=== PATIENT | female | born 1960 | race Caucasian/White ===

== ENCOUNTER 2023-12-07 21:33 | Emergency (ER) | payer MEDICARE, SELFPAY ==
[2023-12-07 21:42] VITALS: BP 167/74; PULSE 68; RESP 20; TEMP 36.2; O2SAT 98; BMI 21.9
--- NOTE | 2023-12-07 21:53 | XR_ITS ---
Patient: LAZARO WAGNER Facility:?[facility] Patient ID:?[id number] Site Patient ID:?[id number] Site :?[id number] Study:?XRay-Extremity Right WRIST 3 VIEW-12/07/2023 10:28:45 PM Ordering Physician:?WILMAN ARSHAD Final Report: INDICATION: Trauma and pain. TECHNIQUE: Right wrist 3 views. COMPARISON: None. FINDINGS: Mildly comminuted displaced fracture of the distal radius with intra-articular extension of fracture plane. Joint alignment is maintained. Mild widening of the scapholunate interval. Soft tissue swelling. IMPRESSION: Mildly comminuted displaced intra-articular distal radial fracture. Dictated by Emery Ibarra MD @ 12/07/2023 10:40:24 PM Signed by:?Emery Ibarra MD @12/07/2023 10:40:24 PM (Electronic Signature)
--- NOTE | 2023-12-07 23:00 | ED.UPPEXIN ---
HPI - Extremity Injury (Upper) General Time Seen by Provider: 23:00 Date Seen: 12/07/23 Chief Complaint: Extremity Pain/Injury, Upper Stated Complaint: right wrist injury, possibly broken Time Seen by Provider: 12/07/23 22:48 Source: patient and RN notes reviewed Mode of arrival: ambulatory Limitations: no limitations History of Present Illness HPI narrative: This 63-year-old female is coming in with right wrist pain and swelling after she fell. She was walking her dog and got pulled, landed with her right arm out. Denies any numbness tingling, nothing else was injured. She broke the same wrist 6 years ago. She hurts with any movement in the wrist. Nursing staff did provide ice packs, did order wrist x-rays in triage due to the volume and acuity in the ER. Her just had shoulder surgery here yesterday, she is stating she is supposed to be taking care of him. She is here with her sister. complaint: injury to: right and wrist Related Data Allergies Allergy/AdvReac Type Severity Reaction Status Date / Time No Known Drug Allergies Allergy Verified 12/07/23 21:53 Review of Systems Narrative: As per HPI. PFSH PFS Social History Non-prescribed substance use: denies use Exam Const: Vital Signs, click to edit/add: Vital Signs - 24 hr 12/07/23 21:42 Temperature 97.1 F L Pulse Rate [Left P ulse Oximeter] 68 Respiratory Rate 20 Blood Pressure [Le ft Upper Arm] 167/74 H Pulse Oximetry 98 Oxygen Delivery Me thod Room Air CPAP Patient is alert, interactive, no apparent distress. She has ice on her right wrist area, this is removed, there is obvious swelling and developing bruising, no loss of skin integrity. Distal sensation and cap refill are normal. No movement of the wrist attempted due to the swelling, probable obvious underlying fracture based on clinical exam. Fingers and hand without any definite pain, mid forearm on up without any problematic areas of pain. Documenting provider has reviewed patient's vital signs: yes Course Course ED Course: Patient's x-rays have obvious distal radius fracture with the fragments comminuted and displaced. Was able to review this with patient when seeing her and showed her a picture. Reviewed with her my conversation with Orthopedics already. Short-arm splint was applied, patient felt stability and improvement in her pain once the splint was on. Consultations Consultation #1: Did review x-ray images with on-call orthopedist Dr. Hughes. He agrees with splinting, follow up with Orthopedics next week for surgical consultation. Will review this with the patient when I do get a chance to see her. Time: 22:34 Vital Signs Vital signs: Initial Vital Signs Temperature 97.1 F L 12/07/23 21:42 Temperature Source Temporal Artery Scan 12/07/23 21:42 Pulse Rate 68 12/07/23 21:42 Pulse Rhythm Regular 12/07/23 21:42 Pulse Strength 3+ Normal 12/07/23 21:42 Respiratory Rate 20 12/07/23 21:42 Blood Pressure 167/74 H 12/07/23 21:42 Blood Pressure Mean 105 12/07/23 21:42 Blood Pressure Position Sitting 12/07/23 21:42 Pulse Oximetry 98 12/07/23 21:42 Oxygen Delivery Method Room Air, CPAP 12/07/23 21:42 Vital Signs Temperature 97.1 F L 12/07/23 21:42 Pulse Rate 68 12/07/23 21:42 Respiratory Rate 20 12/07/23 21:42 Blood Pressure 167/74 H 12/07/23 21:42 Pulse Oximetry 98 12/07/23 21:42 Oxygen Delivery Method Room Air, CPAP 12/07/23 21:42 Temperature 97.1 F L 12/07/23 21:42 Pulse Rate 68 12/07/23 21:42 Respiratory Rate 20 12/07/23 21:42 Blood Pressure 167/74 H 12/07/23 21:42 Pulse Oximetry 98 12/07/23 21:42 Oxygen Delivery Method Room Air, CPAP 12/07/23 21:42 MDM - Extremity Injury (Upper) Imaging Data XR right wrist: Attestation: I have reviewed the pertinent imaging results. My impression: Do see distal radius fracture, comminuted with a comminuted fragments displaced. Await Radiology over-read. Radiologist's impression: Patient: LAZARO WAGNER Facility:?[facility] Patient ID:?[id number] Site Patient ID:?[id number] Site :?[id number] Study:?XRay-Extremity Right WRIST 3 VIEW-12/07/2023 10:28:45 PM Ordering Physician:?WILMAN ARSHAD Final Report: INDICATION: Trauma and pain. TECHNIQUE: Right wrist 3 views. COMPARISON: None. FINDINGS: Mildly comminuted displaced fracture of the distal radius with intra-articular extension of fracture plane. Joint alignment is maintained. Mild widening of the scapholunate interval. Soft tissue swelling. IMPRESSION: Mildly comminuted displaced intra-articular distal radial fracture. Dictated by Emery Ibarra MD @ 12/07/2023 10:40:24 PM (Electronic Signature) Critical Care Time Critical Care Time Critical Care Time: No Discharge Plan Discharge Clinical Impression: Distal radius fracture, right Qualifiers: Encounter type: initial encounter Fracture type: closed Fracture morphology: unspecified fracture morphology Qualified Code(s): S52.501A - Unspecified fracture of the lower end of right radius, initial encounter for closed fracture Patient Disposition: Home, Self-Care Condition: Stable Instructions: Wrist Fracture in Adults (ED) Additional Instructions: Use sling for comfort. Need to keep the splint clean and dry. Ice and elevate as much as possible to help decrease pain and swelling. Tylenol 1000 mg 3 times a day baseline for pain. Can supplement with ibuprofen per bottle directions. Have written for 4 tablets oxycodone, 5 mg. Follow prescription instructions. If you need more pain pills, can talk to Orthopedics when you see them. Need to call the orthopedic office Sunday morning to get scheduled for a follow-up in surgical consultation on this fracture, phone number is [phone]. Stand Alone Forms: [employer] Info Instructions Procedures Orthopedic Splinting/Casting Injury #1: Side: right Upper Extremity Injury Location: wrist Upper extremity immobilizer: short arm (Dorsal/volar short-arm splint applied with Ortho Glass, 2 inch.) Applied by clinician: /DO Conclusion: patient tolerated procedure
--- OUTSIDE RECORDS SUMMARY | 2023-12-07 23:54 | XMS_ITS | Encounter Summary ---
Author Name Unknown Organization [facility] Address [address] [place] [address] Care Team Providers Care Sheriff Officer Name Role Phone Bianca Geronimo Primary Care Provi essence Bianca Geronimo Unavailable + [phone] Madhavi Case PA-C Primary Care Provid er Madhavi Case PA-C Unavailable [phone]- [phone] Encounter Details Date Type Department Care Team (Late st Contact Info) Description 05/15/2022 MyC Medical Advice [facility] [address] [place] [address] Carolina Major MLT Social History Tobacco Use Types Packs/Day Years Used Date Smoking Tobacco: Former Cigarettes 0.2 40 0 10/12/1979 - 10/12/2019 Smokeless Tobacco: Never Alcohol Use Standard Drinks/Week Comments Yes 6 (1 standard drink = 0.6 oz pur e alcohol) AUDIT-C Answer Date Recorded Q1: How often do you have a drink containing alcohol? 4 or more times a week 02/28/2019 Q2: How many drinks containi ng alcohol do you have on a typical day when you are drinking? 1 or 2 9 Q3: How often do you have si x or more drinks on one occasion? Never 02/28/2019 PHQ-2 Answer Date Recorded PHQ-2 Score 0 01/24/2022 Sex and Gender Information Value Date Recorded Sex Assigned at Not on file Gender Identity Not on file Sexual Orientation Not on file documented as of this encounter Plan of Treatment Not on file documented as of this encounter Visit Diagnoses Not on filedocumented in this encounter Additional Health Concerns Assessment Noted Time PHQ-9 Depression Total Score: 0 01/25/20 1:16 PM CDT documented as of this encounter Care Teams Sheriff Officer Relationship Specialty Start Date End Date Bianca Geronimo PA PCP - General Family Practice 10/15/13 07/20/22 Madhavi Case PA-C [address], [address] [address] PCP - General Family Medicine 07/21/22 Bianca Geronmio PA [address] [address] Assigned PCP 08/08/15 08/04/22 Madhavi Case PA-C [address], [address] [address] Assigned PCP 08/05/22 documented as of this encounter
--- OUTSIDE RECORDS SUMMARY | 2023-12-07 23:54 | XMS_ITS | Encounter Summary ---
Author Name Unknown Organization [facility] Address [address] [place] [address] Care Team Providers Care Employee Relations Consultant Name Role Phone Bianca Geronimo Primary Care Provi essence Bianca Geronimo Unavailable [phone] Madhavi Case PA-C Primary Care Provid er Madhavi Case PA-C Unavailable +- [phone] Encounter Details Date Type Department Care Team (Late st Contact Info) Description 06/26/2022 MyC Medical Advice [facility] [address] [place] [address] Bianca Geronimo PA [address] [facility] [id number] [address] Social History Tobacco Use Types Packs/Day Years [...] on file Sexual Orientation Not on file COVID-19 Exposure Response Date Recorded In the last 10 days, have yo u been in contact with someone who was confirmed or suspected to have Coronavirus/COVID-19? 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 documented as of this encounter Plan of Treatment Not on file documented as of this encounter Visit Diagnoses Not on filedocumented in this encounter Additional Health Concerns Assessment Noted Time PHQ-9 Depression Total Score: 0 01/25/20 1:16 PM CDT documented as of this encounter Care Teams Employee Relations Consultant Relationship Specialty Start Date End Date Bianca Geronimo PA PCP - General Family Practice 10/15/13 07/20/22 Madhavi Case PA-C [address] , [address] [address] PCP - General Family Medicine 07/21/22 Bianca Geronimo PA [address] [address] Assigned PCP 08/08/15 08/04/22 Madhavi Case PA-C [address] , [facility] [address] [place] [address] Assigned PCP 08/05/22 documented as of this encounter
--- OUTSIDE RECORDS SUMMARY | 2023-12-07 23:54 | XMS_ITS | Encounter Summary ---
Author Name Unknown Organization [facility] Address [address] [place] [address] Care Team Providers Care Frame Changer Name Role Phone Madhavi Case PA-C Primary Care Provid er Madhavi Case PA-C Unavailable [phone] Encounter Details Date Type Department Care Team ([facility] st Contact Info) Description 08/19/2023 MyC Medical Advice [facility] [address] [place] [address] Madhavi Case PA-C [address] [place] [address] Social History Tobacco Use Types Packs/Day Years Used Date Smoking Tobacco: Former Cigarettes 0.2 40 0 10/12/1979 - 10/12/2019 Passive Smoke Exposure: Never Smokeless Tobacco: Never Alcohol Use Standard Drinks/Week Comments Yes 14 (1 standard drink = 0.6 oz pu re alcohol) AUDIT-C Answer Date Recorded Q1: How [...] PHQ-2 Answer Date Recorded PHQ-2 Score 0 12/26/2022 Adolescent Education Answer Date Record ed Getting School Help Needed Not on file 04/27 Sex and Gender Information Value Date Recorded Sex Assigned at Not on file Gender Identity Not on file Sexual Orientation Not on file documented as of this encounter Plan of Treatment Not on file documented as of this encounter Visit Diagnoses Not on filedocumented in this encounter Additional Health Concerns Assessment Noted Time PHQ-9 Depression Total Score: 0 12/27/19 23 1:27 PM CDT documented as of this encounter Care Teams Frame Changer Relationship Specialty Start Date End Date Madhavi Case PA-C [address] , [address] [address] PCP - General Family Medicine 07/21/22 Madhavi Case PA-C [address], [address] [address] Assigned PCP 08/05/22 documented as of this encounter
--- OUTSIDE RECORDS SUMMARY | 2023-12-07 23:54 | XMS_ITS | Clinical Summary ---
Author Name Unknown Organization [facility] Address [address] [place] [address] Care Team Providers Care Legal Billing Coordinator Name Role Phone Madhavi Case PA-C Primary Care Provid er Madhavi Case PA-C Unavailable [phone] Allergies Active Allergy Reactions Criticality Noted Date Comments Sulfamethoxazole W/Trimethoprim Hives 06/06 Medications Medication Sig Dispensed Refills Start Date End Date Status latanoprost (XALATAN) 0.005 % ophthalmic solution Place 1 drop into the right eye daily 3 04/06/2015 Active dorzolamide-timolo l (COSOPT) 2-0.5 % ophthalmic solution Place 1 drop into the right eye daily 1 01/19/2015 Active CALCIUM-VITAMIN D PO Take 1 tablet by mouth daily Active Multiple Vitamins-Minerals (WOMENS 50+ MULTI VITAMIN PO) Active Cyanocobalamin (B-12) 1000 MCG TBCR Active acyclovir (ZOVIRAX) 800 MG tabletIndications: Herpes simplex virus infection Take 1 tablet (800 mg) by mouth 3 times daily 12 tablet 3 10/23/2023 Active citalopram (CELEXA) 10 MG tabletIndications: Recurrent major depressive disorder, in full remission (H24) Take 1 tablet (10 mg) by mouth daily 90 tablet 3 10/23/2023 Active nitroFURantoin macrocrystal-monoh ydrate (MACROBID) 100 MG capsuleIndications :Recurrent UTI TAKE 1 CAPSULE BY MOUTH AFTER INTERCOURSE 20 capsule 10/23/2023 Active oxyBUTYnin ER (DITROPAN XL) 5 MG 24 hr tabletIndications: Recurrent UTI,OAB (overactive bladder) Take 1 tablet (5 mg) by mouth daily 30 tablet 2 10/23/2023 Active Active Problems Problem Noted Date Diagnosed Date Pure hypercholesterolemia 01/26/2022 Alcohol dependence 11/23/2020 History of SCC (squamous cell carcinoma) of skin 03/02/2019 Introital dyspareunia 06/10/2018 Migraine with aura and witho ut status migrainosus, not intractable 01/03/2018 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 - OB dg, seeing oncology 12/05/2017 Personal history of tobacco use, presenting hazards to health 08/28/2017 Acquired hypothyroidism 07/28/2016 Recurrent UTI 07/28/2016 Osteopenia - repeat DEXA 202307/27/2015 Herpes simplex virus infection - genital 015 Recurrent major depressive d isorder, in full remission (H24) 07/27/2015 Health Skilled Nursing 12/23/2012 Overview: State Tier Level: Tier 2 Status: n/a Health Insurance Assessor: See Letters for [facility] Care Plan ACP (advance care planning) 01/11/2012 Overview: Advance Care Planning 07/27/2015: ACP Review of Chart / Resources Provided: Reviewed chart for advance care plan. Sindy Zarate has no plan or code status on file. Discussed available resources and provided with information. Confirmed code status reflects current choices pending further ACP discussions. Confirmed/documented legally designated decision maker(s). Added by Madhavi Deleon Preglaucoma of right eye 01/10/2011 Resolved Problems Problem Noted Date Diagnosed Date Resolved Date Elevated blood pressure read ing without diagnosis of hypertension 10/30/2017 03/02/2019 Alcohol abuse 10/30/2017 11/23/2020 Hypothyroidism 07/16/2015 07/28/2016 Seborrheic dermatitis 06/25/20142015 Urinary frequency 06/25/2014 07/28/2016 Depression 10/04/2009 07/27/2015 Disorder of autonomic nervous system 09/28/2008 10/30/2017 Overview: Overactive sympathetic Nervous sx. - sympathectomy - 1998 - due to severe anxiety Tachycardia 09/24/2008 06/25/2014 Overview: Problem list name updated by automated process. Provider to review Genital warts 08/18/2008 09/06/2009 Overview: (Problem list name updated by automated process. Provider to review and confirm.) Hypothyroidism 03/14/2007 07/16/2015 Overview: Problem list name updated by automated process. Provider to review Encounter for other general counseling or advice on contraception 03/14/2007 01/10/2011 Overview: Diagnosis updated by automated process. Provider to review and confirm. Encounters Date Type Department Care Team Description 10/23/2023 11:45 AM CDT Office Visit [facility] [address] [place] [address] Madhavi Case PA-C Screening for metabolic disorder (Primary Dx); Herpes simplex virus infection - genital; Recurrent major depressive disorder, in full remission (H24); Acquired hypothyroidism; Recurrent UTI; OAB (overactive bladder); Screening for lipid disorders 10/23/2023 Travel from Last 3 Months Immunizations Name Administration Dates Next Due COVID-19 Monovalent 18+ (Moderna) 11/04/2020,11/2020 COVID-19 Monovalent Booster 18+ (Moderna) 2021,07/18/2021 Influenza Vaccine >6 months,quad, PF 07/04/2023, 07/17/2022 TD,PF 7+ (Tenivac) 02/13/2020,08/06/2002 TDAP Vaccine (Boostrix) 09/06/2009 Zoster recombinant adjuvanted (SHINGRIX) 023 Family History Medical History Relation Comments Alcohol/Drug Brother 2 alcohol Cancer Brother 3 skin cancer -SCC ? Alcohol/Drug Father alcohol Cancer Father esophageal/recta l Dementia Mother 2021 Glaucoma Mother Macular Degeneration Mother Parkinsonism Mother Hypertension Sister 1 Alcoholism Sister 2 Depression Sister 2 Asthma No family hx of Breast Cancer No family hx of C.A.D. No family hx of Cancer - colorectal No family hx of Diabetes No family hx of Relation Status Comments Brother 1 Alive Brother 2 Alive Brother 3 Alive Father (Age 80) Mother Sister 1 Alive Sister 2 Alive Son Alive Social History Tobacco Use Types Packs/Day Years Used Date Smoking Tobacco: Former Cigarettes 0.2 40 0 10/12/1979 - 10/12/2019 Passive Smoke Exposure: Never Smokeless Tobacco: Never Tobacco Cessation:Counseling Given: Not Answered Alcohol Use Standard Drinks/Week Comments Yes 14 [...] PHQ-2 Answer Date Recorded PHQ-2 Score 0 10/23/2023 Adolescent Education Answer Date Record ed Getting School Help Needed Not on file 04/27 Sex and Gender Information Value Date Recorded Sex Assigned at Not on file Gender Identity Not on file Sexual Orientation Not on file Last Filed Vital Signs Vital Sign Reading Time Taken Comments Blood Pressure 110/68 10/23/2023 11:58 AM CDT Pulse 56 10/23/2023 11:58 AM CDT Temperature 36.3 ??C (97.4 ??F) 10/23/2023 11:58 AM C DT Respiratory Rate 20 06/19/2022 12:23 PM CABLE TESTER Oxygen Saturation 99% 10/23/2023 11:58 AM CDT Inhaled Oxygen Concentration - - Weight 56.2 kg (124 lb) 10/23/2023 11:58 AM CDT Height 158.8 cm (5' 2.5) 10/23/2023 11:58 AM CD T Body Mass Index 22.32 10/23/2023 11:58 AM CDT Plan of Treatment Health Maintenance Due Date Last Done Comments ANNUAL REVIEW OF HM ORDERS 1960 CT COLONOGRAPHY 1960 FIT 1960 FLEX SIG 1960 sDNA (Cologuard) 1960 Pneumococcal Vaccine: 65+ Years (1 of 2 - PCV) 1964 COVID-19 Vaccine (2022-) 11/02/2023 07/04/2023, 07/17/2022, 11/04/2021, Additional history exists FALL RISK ASSESSMENT 11/18/2023 MEDICARE ANNUAL WELLNESS VISIT 11/18/2023 01/24/2022, 11/23/2020, 02/28/2019, Additional history exists PHQ-9 04/24/2024 10/23/2023, 12/05, 01/24/2022, Additional history exists RSV VACCINE ( & 60+) (1 - 1-dose 60+ series) 10/22/2024 Postponed from 2018 (Other) TSH W/FREE T4 REFLEX 10/22/2024 10/23/2023, 12/26/2022, 08/01/2022, Additional history exists MAMMO SCREENING 03/21/2025 03/21/2023, 03/06, 03/21/2023, Additional history exists COLONOSCOPY 07/05/2025 07/05/2015, 06/08, 10/09/2008 COLORECTAL CANCER SCREENING 07/05/2025 ADVANCE CARE PLANNING 11/25/2025 11/25/2020 , 07/27/2015, 01/11/2012, Additional history exists GLUCOSE 10/22/2026 10/23/2023, 12/05, 01/24/2022, Additional history exists ZOSTER IMMUNIZATION (2 of 2) 10/23/2027 07/04/2023 Postponed from 08/29/2023 (Not Able to Schedule At This Time) LIPID 10/22/2028 10/23/2023, 12/05, 01/24/2022, Additional history exists DTAP/TDAP/TD IMMUNIZATION (3 - Td or Tdap) 02/12/2030 02/13/2020, 09/06/2009, 08/06/2002 DEXA 02/23/2037 02/23/2022, 09/0 12/2018, 08/18/2008 HIV SCREENING Completed 01/18/2004 HEPATITIS C SCREENING Completed 07/27/2015 PAP Discontinued 11/23/2020, 10/05, 10/21/2013, Additional history exists DEPRESSION ACTION PLAN Completed 01/24/2022, 06/21/ 2022 INFLUENZA VACCINE Completed 07/04/2023, , 11/23/2020 HPV IMMUNIZATION Aged Out No longer e ligible based on patient's age to complete this topic IPV IMMUNIZATION Aged Out No longer e ligible based on patient's age to complete this topic LUNG CANCER SCREENING Discontinued MENINGITIS IMMUNIZATION Aged Out No l onger eligible based on patient's age to complete this topic RSV MONOCLONAL ANTIBODY Aged Out No l onger eligible based on patient's age to complete this topic Procedures Procedure Name Priority Date/Time Associated Diagnosis Comments COMPREHENSIVE METABOLIC PANEL (BFP) Routine 10/23/2023 4:04 PM CDT Screening for metabolic disorder LIPID PANEL (BFP) Routine 10/23/2023 4:0 3 PM CDT Screening for lipid disorders TSH WITH FREE T4 REFLEX ([facility]) Routine 10/23/2023 1:38 PM CDT Acquired hypothyroidism MT COLLECTION VENOUS BLOOD VENIPUNCTURE Routine 10/23/2023 12:37 PM CDT Acquired hypothyroidism Screening for metabolic disorder Screening for lipid disorders MA SCREENING BILATERAL W/ CARROLL Routine 03/21/2023 DX BONE DENSITY Routine 02/23/2022 Osteopenia of multiple sites THINPREP PAP AND HPV MRNA E6/E7 ([facility]) Routine 11/23/2020 1:04 PM CDT Routine general medical examination at a health care facility HEPATITIS C ANTIBODY Routine 07/27/2015 11:51 AM CABLE TESTER Need for hepatitis C screening test COLONOSCOPY Routine 07/05/2015 9:47 AM CABLE TESTER from Last 3 Months or Most Recently Relevant to Health Maintenance Results * Comprehensive Metobolic Panel (BFP) (10/23/2023 4:04 PM CDT) Carbon Dioxide 28.4 20 - 32 mmol/L BFP INTERNAL Creatinine 0.91 0.60 - 1.30 mg/dL BFP INTERNAL Glucose 93 60 - 99 mg/dL BFP INTERNAL Sodium 136.6 135 - 146 mmol/L BFP INTERNAL Potassium 4.63 3.5 - 5.3 mmol/L BFP INTERNAL Chloride 100.5 98 - 110 mmol/L BFP INTERNAL Protein Total 7.4 6.1 - 8.1 g/dL BFP INTERNAL Albumin 4.3 3.6 - 5.1 g/dL BFP INTERNAL Alkaline Phosphatase 38 33 - 130 U/L BFP INTERNAL ALT 17 0 - 32 U/L BFP INTERNAL AST 19 0 - 35 U/L BFP INTERNAL Bilirubin Total 0.7 0.2 - 1.2 mg/dL BFP INTERNAL Urea Nitrogen 14 7 - 25 mg/dL BFP INTERNAL Calcium 9.8 8.6 - 10.3 mg/dL BFP INTERNAL BUN/Creatinine Ratio 15.4 6 - 32 BFP INTERNAL Globulin Calculated 3.1 1.9 - 3.7 BFP INTERNAL A/G Ratio 1.4 1 - 2.5 BFP INTERNAL Blood 10/23/2023 4:04 PM CDT Madhavi Case PA-C LAB - NON-BE [facility] BLOOD LABS BFP INTERNAL * (ABNORMAL) Lipid Panel (BFP) (10/23/2023 4:03 PM CDT) Cholesterol 245(A) 0 - 199 mg/dL BFP INTERNAL Triglycerides 100 0 - 149 mg/dL B[facility] INTERNAL HDL Cholesterol 74 40 - 150 mg/dL B[facility] INTERNAL LDL Cholesterol Direct 151(A) 0 - 130 mg/dL BFP INTERNAL Cholesterol/HDL Ratio 3 0 - 5 [facility] INTERNAL Blood 10/23/2023 4:03 PM CDT Madhavi Case PA-C LAB - NON-BE [facility] BLOOD LABS BFP INTERNAL * (ABNORMAL) TSH WITH FREE T4 REFLEX ([facility]) (10/23/2023 1:38 PM CDT) TSH 4.93(H) 0.40 - 4.50 mIU/L [facility] T4 Free, Non-Dialysis 1.5 0.8 - 1.8 ng/dL [facility] Blood 10/23/2023 1:38 PM CDT 10/24/2023 8:37 AM CDT Narrative Resulting Agency Comment Performing Organization Information: ? CB ? [facility] ? [address] [place] [address] ? Felipe Nails Madhavi Case PA-C LAB - NON-BE [facility]OD [facility] [address] [place], [place] [id number] [place] [address] * [place] Screening Bilateral w/ Carroll (03/21/2023) MAMMOGRAM Anatomical Region Laterality Modality Breast Bilateral Other Narrative 03/21/[address] [place] [address], [address] [place] [address] Exchange : 1960 Req Phys: Madhavi Case PA-C Patient name: SINDY ZARATE Clinic: [facility] Dept No: [id number] MAMMOGRAM SCREENING CARROLL BILATERAL Exam Date: 03/21/2023 EXAM: MAMMOGRAM SCREENING CARROLL BILATERAL LOCATION: [facility] DATE: 03/21/2023 INDICATION: Asymptomatic. Screening Mammogram. COMPARISON: 02/23/22, 04/10/19 BREAST DENSITY: Heterogeneously dense, which may obscure small masses. FINDINGS: Tomosynthesis craniocaudal and mediolateral oblique views were obtained. There is no evidence for spiculated masses, architectural distortion, asymmetry or suspicious calcifications. IMPRESSION: No evidence of malignancy. Recommend routine annual screening mammography. When performed, computer-aided detection was used in the interpretation of this study. ACR 1: Negative. A lay language report of this examination will be mailed to the patient. Dictated By: MARIEL ALSTON M.D. Password protected electronic signature by: MANJULA Trans: ROBERT Date Of Trans: 03/21/2023 1:07:00PM Date report approved and signed by interpreting physician: 03/21/2023 1:07:00PM Page 1 of 1 Patient Reported IMG MAMMOGRAPHY ORDE INOCENTE * DX Hip/Pelvis/Spine (02/23/2022) Anatomical Region Laterality Modality Dexa Other Narrative 02/23/[address] [place] [address], [address] [place] [address] Exchange : 1960 Req Phys: Bianca Geronimo PA Patient name: SINDY ZARATE Clinic: [facility] Dept No: [id number] BONE DENSITY Exam Date: 02/23/2022 EXAM: BONE DENSITY LOCATION: [facility] DATE/TIME: 02/23/2022 3:20 PM INDICATION: Postmenopause screening. COMPARISON: None. TECHNIQUE: Dual-energy x-ray absorptiometry performed with routine technique. FINDINGS: Lumbar Spine: L1-L4: BMD: 0.960 g/cm2. T-score: -0.8. Z-score: 0.8. RIGHT Hip Total: BMD: 0.906 g/cm2. T-score: -0.3. Z-score: 0.8. RIGHT Hip Femoral neck: BMD: 0.713 g/cm2. T-score: -1.2. Z-score: 0.2. LEFT Hip Total: BMD: 0.844 g/cm2. T-score: -0.8. Z-score: 0.3. LEFT Hip Femoral neck: BMD: 0.683 g/cm2. T-score: -1.5. Z-score: -0.1. WHO Criteria: Normal: T score at or above -1 SD Osteopenia: T score between -1 and -2.5 SD Osteoporosis: T score at or below -2.5 SD COMPARISON: There has been a 0.2% decrease in lumbar spine BMD. There has been a 3.9% decrease in right hip BMD. There has been a 3.2% decrease in left hip BMD. FRAX Results: 10 year probability of major osteoporotic fracture is 8%, and of hip fracture is 0.8%, based on left femoral neck BMD. RECOMMENDATIONS: Consider treatment if major osteoporotic fracture score is greater than or equal to 20%. Consider treatment if hip fracture score is greater than or equal to 3%. IMPRESSION: NORMAL. Bone mineral density measurements are within normal limits using T score. Dictated By: MARIFER RUBIO M.D. Password protected electronic signature by: AMIE Trans: TS Date Of Trans: 02/23/2022 5:18:00PM Date report approved and signed by interpreting physician: 02/24/2022 6:56:00AM Page 1 of 1 Bianca SONG IMG DEXA OR DERABLES * ThinPrep Pap and HPV (mRNa E6/E7) {HPV always run}([employer]) (11/23/2020 1:04 PM CDT) Clinical History SEE COMMENT Q UBLAYNE HERNANDEZ Comment:SCREENING PARA 1 LMP SEE COMMENT GILA HERNANDEZ Comment:PM Last Pap Diagnosis SEE COMMENT GILA HERNANDEZ Comment:10/30/17 Prev Bx Dx SEE COMMENT GILA HERNANDEZ Comment:11/23/20 Source SEE COMMENT GILA HERNANDEZ Comment:Cervix Statement of Adequacy SEE COMMENT GILA HERNANDEZ Comment: Satisfactory for evaluation. Endocervical/transformation zone component present. Descriptive Diagnosis SEE COMMENT GILA HERNANDEZ Comment:Negative for intraep ithelial lesion or malignancy. Business Process Representative: SEE COMMENT GILA HERNANDEZ Comment: ESW, CT (ASCP) CT Screening location: [address] ??[address] Comment SEE COMMENT GILA K[employer] HERNANDEZ Comment: EXPLANATORY NOTE: The Pap is a screening test for cervical cancer. It is not a diagnostic test and is subject to false negative and false positive results. It is most reliable when a satisfactory sample, regularly obtained, is submitted with relevant clinical findings and history, and when the Pap result is evaluated along with historic and current clinical information. HPV mRNA E6/E7 Not Detected Not Detected GILA HERNANDEZ Comment: Methodology: Acupressure Therapist-Mediated Amplification This assay detects E6/E7 viral messenger RNA (mRNA) from 14 high-risk HPV types (16,18,31,33,35,39,45,51,52,56,58,59,66,68). The analytical performance characteristics of this assay have been determined by [employer]. The modifications have not been cleared or approved by the FDA. This assay has been validated pursuant to the CLIA regulations and is used for clinical purposes. For additional information, please refer to http://education.[employer]/faq/QQQ485a0 (This link if provided for information/ educational purposes only.) Cervical 11/23/2020 1:04 PM CDT 11/24/2020 2:41 AM CDT Narrative Resulting Agency Comment Performing Organization Information: ? [place] ? [facility] ? [address] [place] [address] ? Felipe Nails Bianca SONG LAB - NON-B EAKER NON-BLOOD Performing Organization Address City/[facility] Co de Phone Number [facility] [address] [phone] * Hepatits C antibody ([facility]) (07/27/2015 11:51 AM CABLE TESTER) HCV Antibody NON-REACTI VE NON-REACTI VE [facility] SIGNAL TO CUT OFF - [facility] 0.04 <1.00 [facility] Blood specimen (specimen) 07/27/2015 11:51 AM CABLE TESTER 07/28/2015 3:48 AM CABLE TESTER Narrative Resulting Agency Comment Performing Organization Information: ? CB ? [facility] ? [address] [place] [address] ? Felipe Nails M.D. Bianca SONG LAB - BLOOD ORDERABLES Performing Organization Address City/[facility]/ZIP Co de Phone Number [facility] [address] [place] [address] * COLONOSCOPY (07/05/2015 9:47 AM CABLE TESTER) COLONOSCOPY [facility] Patient Name: Sindy Zarate ? Procedure Date: 07/05/2015 9:47 AM ? Date of : 1960 ?Admit Type: Outpatient Age: 54 ? Gender: Female Attending MD: Emery Copeland MD ? Instrument Name: 136 Procedure: ?Colonoscopy Indications: ?Screening, father had rectal cancer at 70 Providers: ?Emery Copeland MD, Daxa Carlisle RN (Nurse) Referring MD: ? Bianca Geronimo MD Medicines: ?Midazolam 2 mg IV, Fentanyl 100 micrograms IV Complications: ?No immediate complications. Procedure: ?Pre-Anesthesia Assessment: ?- Prior to the procedure, a History and Physical ?was performed, and patient medications and ?allergies were reviewed. The patient is competent. ?The risks and benefits of the procedure and the ?sedation options and risks were discussed with the ?patient. All questions were answered and informed ?consent was obtained. Patient identification and ?proposed procedure were verified by the physician ?in the endoscopy suite. Mental Status Examination: ?alert and oriented. Airway Examination: normal ?oropharyngeal airway and neck mobility. Respiratory ?Examination: clear to auscultation. CV Examination: ?normal. Prophylactic Antibiotics: The patient does ?not require prophylactic antibiotics. Prior ?Anticoagulants: The patient has taken no previous ?anticoagulant or antiplatelet agents. ASA Grade ?Assessment: II - A patient with mild systemic ?disease. After reviewing the risks and benefits, ?the patient was deemed in satisfactory condition to ?undergo the procedure. The anesthesia plan was to ?use moderate sedation / analgesia (conscious ?sedation). Immediately prior to administration of ?medications, the patient was re-assessed for ?adequacy to receive sedatives. The heart rate, ?respiratory rate, oxygen saturations, blood ?pressure, adequacy of pulmonary ventilation, and ?response to care were monitored throughout the ?procedure. The physical status of the patient was ?re-assessed after the procedure. ?After obtaining informed consent, the colonoscope ?was passed under direct vision. Throughout the ?procedure, the patient's blood pressure, pulse, and ?oxygen saturations were monitored continuously. The ?[id number] was introduced through the anus and ?advanced to the terminal ileum. The colonoscopy was ?performed without difficulty. The patient tolerated ?the procedure well. The quality of the bowel ?preparation was excellent. ? Findings: ? The entire examined colon appeared normal on direct and retroflexion ? views. ? Impression: ? - The entire examined colon is normal on direct and ?retroflexion views. Recommendation: ? Repeat in ten years. ? _ Emery Copeland MD 07/05/2015 10:24 AM I was physically present for the entire viewing portion of the exam. Number of Addenda: 0 Note Initiated On: 07/05/2015 9:47 AM MRN: [id number] Procedure Date: ? 07/05/2015 9:47:28 AM Scope Withdrawal Time: 0 hours 7 minutes 20 seconds Total Procedure Duration: 0 hours 18 minutes 29 seconds Estimated Blood Loss: ? Scope In: 10:02:37 AM Scope Out: 10:21:06 AM RADIOLOGY RESULTS 07/05/2015 9:47 AM CABLE TESTER Bianca SONG PROCEDURES RADIOLOGY RESULTS from Last 3 Months or Most Recently Relevant to Health Maintenance Advance Directives For more information, please contact: [phone] * Full Code (Latest Code Status on File) Date Activated Date Inactivated Comments 01/10/2018 8:20 AM Care Teams Legal Billing Coordinator Relationship Specialty Start Date End Date Madhavi Case PA-C [address], [facility] [address] [place] [address] PCP - General Family Medicine 07/21/22 Madhavi Case PA-C [address], [place] [address] [place] [address] Assigned PCP 08/05/22
--- OUTSIDE RECORDS SUMMARY | 2023-12-07 23:54 | XMS_ITS | Referral Summary ---
Author Name Unknown Organization [place] Address [address] [place] [address] Care Team Providers Care Book Illustrator Name Role Phone Madhavi Case PA-C Primary Care Provid er Madhavi Case PA-C Unavailable [phone] Encounters Date Type Department Care Team Description 10/23/2023 Travel 10/23/2023 11:45 AM CDT Office Visit [facility] [address] [place] [address] Madhavi Case PA-C Screening for metabolic disorder (Primary Dx); Herpes simplex virus infection - genital; Recurrent major depressive disorder, in full remission (H24); Acquired hypothyroidism; Recurrent UTI; OAB (overactive bladder); Screening for lipid disorders from Last 3 Months Allergies Active Allergy Reactions Criticality Noted Date [...] isorder, in full remission (H24) 07/27/2015 Health Alf 12/23/2012 Overview: State Tier Level: Tier 2 Status: n/a Mba Internship: See Letters for [facility] Care Plan ACP (advance care planning) [...] Overactive sympathetic Nervous sx. - sympathectomy - 1999 - due to severe anxiety Tachycardia 09/24/2008 [...] automated process. Provider to review and confirm. Immunizations Name Administration Dates Next Due COVID-19 Monovalent 18+ (Moderna) 11/04/2020,11/2020 COVID-19 Monovalent Booster 18+ (Moderna) 2021,07/18/2021 Influenza Vaccine >6 months,quad, PF 07/04/2023, 07/17/2022 TD,PF 7+ (Tenivac) 02/13/2020,08/06/2002 TDAP Vaccine (Boostrix) 09/06/2009 Zoster recombinant adjuvanted (SHINGRIX) 023 Social History Tobacco Use Types Packs/Day Years [...] DT Respiratory Rate 20 06/19/2022 12:23 PM LOADING CHECKER Oxygen Saturation 99% 10/23/2023 11:58 AM CDT Inhaled Oxygen Concentration - - Weight 56.2 kg (124 lb) 10/23/2023 11:58 AM CDT Height 158.8 cm (5' 2.5) 10/23/2023 11:58 AM CD T Body Mass Index 22.32 10/23/2023 11:58 AM CDT Plan of Treatment Not on file Procedures Procedure Name Priority Date/Time Associated Diagnosis Comments COMPREHENSIVE METABOLIC PANEL (BFP) Routine 10/23/2023 4:04 PM CDT Screening for metabolic disorder LIPID PANEL (BFP) Routine 10/23/2023 4:0 3 PM CDT Screening for lipid disorders TSH WITH FREE T4 REFLEX ([facility]) Routine 10/23/2023 1:38 PM CDT Acquired hypothyroidism AL COLLECTION VENOUS BLOOD VENIPUNCTURE Routine 10/23/2023 12:37 PM CDT Acquired hypothyroidism Screening for metabolic disorder Screening for lipid disorders MA SCREENING BILATERAL W/ CARROLL Routine 03/21/2023 DX BONE DENSITY Routine 02/23/2022 Osteopenia of multiple sites THINPREP PAP AND HPV MRNA E6/E7 ([facility]) Routine 11/23/2020 1:04 PM CDT Routine general medical examination at a health care facility HEPATITIS C ANTIBODY Routine 07/27/2015 11:51 AM LOADING CHECKER Need for hepatitis C screening test COLONOSCOPY Routine 07/05/2015 9:47 AM LOADING CHECKER from Last 3 Months or Most Recently [...] [facility] BFP INTERNAL * (ABNORMAL) TSH WITH FREE T4 REFLEX ([facility]) (10/23/2023 1:38 PM CDT) TSH 4.93(H) 0.40 - 4.50 mIU/L [facility] T4 Free, Non-Dialysis 1.5 0.8 - 1.8 ng/dL [facility] Blood 10/23/2023 1:38 PM CDT 10/24/2023 8:37 AM CDT Narrative Resulting Agency Comment Performing Organization Information: ? CB ? [facility] ? [address] [place] [address] ? Felipe Nails Madhavi Case PA-C LAB - NON-BE [facility] Performing Organization Address City/[facility]/ZIP Co de Phone Number [facility] [address] [place], [place] [id number] [place] [address] * MA Screening Bilateral w/ Carroll (03/21/2023) MAMMOGRAM Anatomical Region Laterality Modality Breast Bilateral Other Narrative 03/21/[address] [place] [address], [address] [place] [address] [place] : 1960 Req Phys: Madhavi Case PA-C Patient name: SINDY ZARATE Clinic: [facility] Dept No: [id number] MAMMOGRAM SCREENING CARROLL BILATERAL Exam Date: 03/21/2023 EXAM: MAMMOGRAM SCREENING CARROLL BILATERAL LOCATION: [facility] [place] DATE: 03/21/2023 INDICATION: Asymptomatic. Screening Mammogram. COMPARISON: [...] Region Laterality Modality Dexa Other Narrative 02/23/[address] [place] [address], [address] [place] [address] [place] : 1960 Req Phys: Bianca Geronimo PA Patient name: SINDY ZARATE Clinic: [facility] Dept No: [id number] BONE DENSITY Exam Date: 02/23/2022 EXAM: BONE DENSITY LOCATION: [facility] DATE/TIME: 02/23/2022 3:20 PM INDICATION: Postmenopause screening. [...] Pap and HPV (mRNa E6/E7) {HPV always run}([facility]) (11/23/2020 1:04 PM CDT) Clinical History SEE COMMENT [facility] Comment:SCREENING PARA 1 LMP SEE COMMENT [facility] Comment:PM Last Pap Diagnosis SEE COMMENT [facility] Comment:10/30/17 Prev Bx Dx SEE COMMENT [facility] Comment:11/23/20 Source SEE COMMENT [facility] Comment:Cervix Statement of Adequacy SEE COMMENT [facility] Comment: Satisfactory for evaluation. Endocervical/transformation zone component present. Descriptive Diagnosis SEE COMMENT [facility] Comment:Negative for intraep ithelial lesion or malignancy. Forging Engineer: SEE COMMENT [facility] Comment: ESW, CT (ASCP) CT Screening location: [address] ??[address] Comment SEE COMMENT [facility] Comment: EXPLANATORY NOTE: The Pap is [...] Detected Not Detected [facility] Comment: Methodology: Insole Doubler-Mediated Amplification This assay detects E6/E7 viral messenger RNA (mRNA) from 14 high-risk HPV types (16,18,31,33,35,39,45,51,52,56,58,59,66,68). The analytical performance characteristics of this assay have been determined by [employer]. The modifications have not been cleared or approved by the FDA. This assay has been validated pursuant to the CLIA regulations and is used for clinical purposes. For additional information, please refer to http://education.Comunite[employer]/faq/XWN775f9 (This link if provided for information/ educational purposes only.) Cervical 11/23/2020 1:04 PM CDT 11/24/2020 2:41 AM CDT Narrative Resulting Agency Comment Performing Organization Information: ? [place] ? [facility] ? [address] [place] [address] ? Felipe Nails Bianca SONG LAB - NON-B KATHLEEN NON-BLOOD [facility] [address] [phone] * Hepatits C antibody ([facility]) (07/27/2015 11:51 AM LOADING CHECKER) HCV Antibody NON-REACTI VE NON-REACTI VE [facility] SIGNAL TO CUT OFF - [facility] 0.04 <1.00 [facility] Blood specimen (specimen) 07/27/2015 11:51 AM LOADING CHECKER 07/28/2015 3:48 AM LOADING CHECKER Narrative Resulting Agency Comment Performing Organization Information: ? CB ? [facility] ? [address] [facility] [place] [address] ? Felipe Nails M.D. Bianca SONG LAB - BLOOD ORDERABLES [facility] [address] [facility] [place] [address] * COLONOSCOPY (07/05/2015 9:47 AM LOADING CHECKER) COLONOSCOPY [facility] Patient Name: Sindy Zarate ? Procedure Date: [...] and ?oxygen saturations were monitored continuously. The [id number] was introduced through the anus and ?advanced [...] Note Initiated On: 07/05/2015 9:47 AM MRN: ?[id number] Procedure Date: ? 07/05/2015 9:47:28 AM Scope Withdrawal Time: 0 hours 7 minutes 20 seconds Total Procedure Duration: 0 hours 18 minutes 29 seconds Estimated Blood Loss: ? Scope In: 10:02:37 AM Scope Out: 10:21:06 AM RADIOLOGY RESULTS 07/05/2015 9:47 AM LOADING CHECKER Bianca SONG PROCEDURES RADIOLOGY RESULTS from Last 3 Months or Most Recently Relevant to Health Maintenance Advance Directives For more information, please contact: [phone] * Full Code (Latest Code Status on File) Date Activated Date Inactivated Comments 01/10/2018 8:20 AM Care Teams Book Illustrator Relationship Specialty Start Date End Date Madhavi Case PA-C [address], [address] [place] [address] PCP - General Family Medicine 07/21/22 Madhavi Case PA-C [address], [address] [place] [address] Assigned PCP 08/05/22
--- OUTSIDE RECORDS SUMMARY | 2023-12-07 23:54 | XMS_ITS | Encounter Summary ---
Author Name Unknown Organization [place] Address [address] [place] [address] Care Team Providers Care Information Receptionist Name Role Phone Bianca Geronimo Primary Care Provi essence Bianca Geronimo Unavailable [phone] Madhavi Case PA-C Primary Care Provid er Madhavi Case PA-C Unavailable +- [phone] Encounter Details Date Type Department Care Team (Late st Contact Info) Description 06/16/2022 MyC Medical Advice [facility] [address] [place] [address] Bianca Geronimo PA [address] [facility] [address] [address] Social History Tobacco Use Types [...] Coronavirus/COVID-19? No / Unsure 06/19/2022 12:19 PM CUSTOMER ACCOUNT ADMINISTRATOR documented as of this encounter Plan of Treatment Not on file documented as of this encounter Visit Diagnoses Not on filedocumented in this encounter Additional Health Concerns Assessment Noted Time PHQ-9 Depression Total Score: 0 01/25/20 1:16 PM CDT documented as of this encounter Care Teams Information Receptionist Relationship Specialty Start Date End Date Bianca Geronimo PA PCP - General Family Practice 10/15/13 07/20/22 Madhavi Case PA-C [address] , [address] [address] PCP - General Family Medicine 07/21/22 Bianca Gernoimo PA [address] [address] Assigned PCP 08/08/15 08/04/22 Madhavi Case PA-C [address] , [facility] [address] [place] [address] Assigned PCP 08/05/22 documented as of this encounter
--- OUTSIDE RECORDS SUMMARY | 2023-12-07 23:54 | XMS_ITS | Encounter Summary ---
Author Name Unknown Organization [place] Address [address] [place] [address] Care Team Providers Care Outcomes Specialist Name Role Phone Bianca Geronimo Primary Care Provi essence Bianca Geronimo Unavailable [phone] Madhavi Case PA-C Primary Care Provid er Madhavi Case PA-C Unavailable [phone] Reason for Visit * Reason Onset Date Comments Medication Refill 12/20/2021 Encounter Details Date Type Department Care Team (Late st Contact Info) Description 12/20/2021 MyC Medical Advice [facility] [address] [place] [address] Bianca Geronimo PA [address] [facility] [address] [address] [address] Medication Refill Social History Tobacco Use Types Packs/Day Years Used Date Smoking Tobacco: Former Cigarettes 0.2 40 0 10/12/1979 - 10/12/2019 Smokeless Tobacco: Never Comments:1 cig a day or less Alcohol Use Standard Drinks/Week Comments Yes 19 (1 standard drink = 0.6 oz pu re alcohol) occasionally AUDIT-C Answer Date Recorded Q1: How often [...] PHQ-2 Answer Date Recorded PHQ-2 Score 0 11/23/2020 Sex and Gender Information Value Date Recorded Sex Assigned at Not on file Gender Identity Not on file Sexual Orientation Not on file documented as of this encounter Miscellaneous Notes * Telephone Encounter - Bianca Geronimo PA - 12/20/2021 2:05 PM CDT Filled Sent pt mychart Bianca Geronimo PA-C 12/20/2021 * Telephone Encounter - Siobhan Martin CMA - 12/20/2021 11:16 AM CDT Pt has not been seen since 11/23/20. Already advised that she needs an OV. States will make OV when she gets back in a couple weeks documented in this encounter Plan of Treatment Not on file documented as of this encounter Visit Diagnoses Diagnosis Herpes simplex virus infection - genital Herpes simplex without mention of complication Recurrent UTI Urinary tract infection, site not specified documented in this encounter Additional Health Concerns Assessment Noted Time PHQ-9 Depression Total Score: 0 11/24/19 12:34 PM CDT documented as of this encounter Care Teams Outcomes Specialist Relationship Specialty Start Date End Date Bianca Geronimo PA PCP - General Family Practice 10/15/13 07/20/22 Madhavi Case PA-C [address] [address] PCP - General Family Medicine 07/21/22 Bianca Geronimo PA [address] [facility] [address] [facility] [address] [place] [address] Assigned PCP 08/08/15 08/04/22 Madhavi Case PA-C [address], [facility] [address] [place] [address] Assigned PCP 08/05/22 documented as of this encounter
--- OUTSIDE RECORDS SUMMARY | 2023-12-07 23:54 | XMS_ITS | Encounter Summary ---
Author Name Unknown Organization [facility] Address [address] [place] [address] Care Team Providers Care Vice President Research Name Role Phone Madhavi Case PA-C Primary Care Provid er Madhavi Case PA-C Unavailable +- [phone] Reason for Visit * Reason Comments Recheck Medication Non fasting med chec k Consult Discuss medication/o ptions for alcohol cravings Encounter Details Date Type Department Care Team (Late st Contact Info) Description 10/23/2023 11:45 AM CDT Office Visit [facility] [address] [address] Madhavi Case PA-C [address] [place] [address] Screening for metabolic disorder (Primary Dx); Herpes simplex virus infection - genital; Recurrent major depressive disorder, in full remission (H24); Acquired hypothyroidism; Recurrent UTI; OAB (overactive bladder); Screening for lipid disorders Social History Tobacco Use Types Packs/Day Years [...] on file documented as of this encounter Last Filed Vital Signs Vital Sign Reading Time Taken Comments Blood Pressure 110/68 10/23/2023 11:58 AM CDT Pulse 56 10/23/2023 11:58 AM CDT Temperature 36.3 ??C (97.4 ??F) 10/23/2023 11:58 AM C DT Respiratory Rate - - Oxygen Saturation 99% 10/23/2023 11:58 AM CDT Inhaled Oxygen Concentration - - Weight 56.2 kg (124 lb) 10/23/2023 11:58 AM CDT Height 158.8 cm (5' 2.5) 10/23/2023 11:58 AM CD T Body Mass Index 22.32 10/23/2023 11:58 AM CDT documented in this encounter Progress Notes * Madhavi Case PA-C - 10/23/2023 11:45 AM CDT CC: Medication Check History: Hypothyroid: Takes levothyroxine 112 mcg. Pt has been taking consistently. TSH last checked 12/2022. Right away in morning with just water. Cold sores: Takes acyclovir as needed. Rarely. Usually with higher stress times. Shingles: Had shingles involving left eye 04/2022. Overall resolved, but still gets some tingling pain in upper and lower eyelids. Prescribed gabapentin in the past, but no longer needing this. Depression: Takes citalopram 10 mg which works well. Has been on 20 mg in the past, but felt like it didn't make a difference to be on the higher dose. Sleep: Takes OTC sleeping medication every day. Taking diphenhydramine 25 mg every night for 10 years. Does seem to help. Frequent urination, overactive bladder: Was prescribed oxybutynin, but never actually started. Would be interested in starting this. Also takes nitrofurantoin after intercourse as needed, but hasn't done much, and has not had issues for atleast 1 year now. Alcohol use: Pt admits to habitual drinking usually 3-4 drinks most days for decades. ~20 drinks per week. Beer,wine, spirits. Her spouse had expressed concern recently with student truck driver health implications of this. She has tried to cut back based on his concerns with some success. Down to 2-3 drinks daily, with 2 days of no alcohol weekly. Now she can feel cravings happening more. Finds herself sneaking alcohol around spouse, having more when he is away. She would like to try Naltrexone. Denies any opioid use, history of liver disease. Has not been on naltrexone before, but has researched this. PMH, MEDICATIONS, ALLERGIES, SOCIAL AND FAMILY HISTORY in EPIC and reviewed by me personally. ROS negative other than the symptoms noted above in the HPI. Examination BP 110/68 (BP Location: Left arm, Patient Position: Sitting, Cuff Size: Adult Regular) Pulse 56 Temp 97.4 ??F (36.3 ??C) (Temporal) Ht 1.588 m (5' 2.5) Wt 56.2 kg (124 lb) SpO2 99% BMI 22.32 kg/m?? Constitutional: Sitting comfortably, in no acute distress. Vital signs noted Psychiatric: mentation appears normal and affect normal/bright A/P ICD-10-CM 1. Screening for metabolic disorder Z13.228 VENOUS COLLECTION Comprehensive Metobolic Panel (BFP) 2. Herpes simplex virus infection - genital B00.9 acyclovir (ZOVIRAX) 800 MG tablet 3. Recurrent major depressive disorder, in full remission (H24) F33.42 citalopram (CELEXA) 10 MG tablet 4. Acquired hypothyroidism E03.9 VENOUS COLLECTION TSH WITH FREE T4 REFLEX ([facility]) DISCONTINUED: levothyroxine (SYNTHROID/LEVOTHROID) 112 MCG tablet 5. Recurrent UTI N39.0 nitroFURantoin macrocrystal-monohydrate (MACROBID) 100 MG capsule oxyBUTYnin ER (DITROPAN XL) 5 MG 24 hr tablet 6. OAB (overactive bladder) N32.81 oxyBUTYnin ER (DITROPAN XL) 5 MG 24 hr tablet 7. Screening for lipid disorders Z13.220 VENOUS COLLECTION Lipid Panel (BFP) DISCUSSION: Hypothyroid: Will recheck TSH and refill current dose of levothyroxine for 1 year, unless dose change is indicated. *Spoke to pt, and advised dose increase based on elevated TSH. She explains that she takes most days with her coffee and creamer but knows it would be better to take with just water. She would like to work on this first and recheck in 2 months. Cold sores: Will refill medication without change for 1 year. Shingles: Continue to monitor. Depression: PHQ-9 and MINDY-7 updated today and well controlled. Agreed to refill current medication without change for 1 year. Contact us sooner with concerns, worsening. Sleep: Advised sleep hygiene. Take lowest effective dose as infrequently as possible. Frequent urination, overactive bladder: Agreed to refill oxybutynin for pt to try. Warned of side effects, and to contact me if noted. She can contact our clinic if this is helping without side effects, and would consider refilling with other medication. Alcohol use: Discussed with patient referral to addiction medicine, therapist with addiction training. Pt declines as she doesn't feel this is necessary. Feels motivated to cut back especially with spouses encouragement. She declines any opioid/narcotic use. Discussed with supervising physician Dr. Hernandez. Agreed to coordinate trial of naltrexone. Understands that this blocks the pleasure feeling of alcohol that some experience. Explain this likely won't be a group home medication, but more to help her with cravings over the next 3-6 months as she is cutting down and stabilizing. Start with naltrexone 50 mgdaily, but only take 1/2 tablet for first 14 days (confirmed with pharmacist okay to take 1/2 tablet. Take in evening with or without food. Side effects to monitor for are abdominal pain, nausea/vomitting, appetite suppression, dizziness, fatigue, headaches, low mood, anxiety, rash, and contact us if noted. She understands that abrupt cessation of alcohol use and subsequent withdrawal is dangerous and should only be done under medical supervision. Her goal is to cut down to 1-2 drinks daily andnot every day. Explained that naltrexone can cause liver inflammation. CMP checked at 10/2023 visit and WNL, but would need her to return within 2 months if wanting to continue medication for repeat labs, discussion of progress. Warned pt that medication is under a shortage, and her [facility] doesn't have but [facility] in [place] had it in stock when I called 10/26/23. Pt informs me that she has carl e back to [place] for a few more weeks. Not wanting to start until back in [place]. Asked for paper copy of prescription so she can fill when ready. Informed her that given nature of this medication, I would prefer to send directly to her pharmacy so that we are aware of more exact timing of her starting this medication. I was planning to prescribe naltrexone 50 mg #30 with 1 refill with the first fill doing the 1/2 tablets for the first 14 days. I do feel it would be reasonable for her to contact us when she is back to [place] and ready and we could send this through to the pharmacy she has confirmed has it in stock and have her follow-up in 2 months. Could recheck this medication and recheck TSH at follow-up visit. Warned her that I will be on a planned leave when she gets back, so this initial scriptmay need to come from one of my colleagues (spoke to both Dr. Hernandez and Livan Hagan PA-C about this),which she understands. Tremor, word-finding: At conclusion of appt, pt mentions some increased issues with word finding, and some very mild tremor. We agree not notable enough to involve neurology at this time, and may be related to her cuttingback on alcohol, but will make a note of it, and she should follow-up if worsening. follow up visit: 2 months after starting naltrexone, or ideally in 2-3 months to recheck TSH if sheisn't doing naltrexone. Madhavi Case PA-C [facility] documented in this encounter Nursing Notes * Martha Olvera - 10/23/2023 11:45 AM CDT Chief Complaint Patient presents with Recheck Medication Non fasting med check Consult Discuss medication/options for alcohol cravings Pre-visit Screening: Immunizations: up to date Colonoscopy: is up to date Mammogram: NA Asthma Action Test/Plan: NA PHQ9: Done today GAD7: Done today Questioned patient about current smoking habits Pt. has never smoked. Ok to leave detailed message on voice mail for today's visit only Yes, phone # [phone] documented in this encounter Plan of Treatment Not on file documented as of this encounter Procedures Procedure Name Priority Date/Time Associated Diagnosis Comments COMPREHENSIVE METABOLIC PANEL (BFP) Routine 10/23/2023 4:04 PM CDT Screening for metabolic disorder LIPID PANEL (BFP) Routine 10/23/2023 4:0 3 PM CDT Screening for lipid disorders TSH WITH FREE T4 REFLEX ([facility]) Routine 10/23/2023 1:38 PM CDT Acquired hypothyroidism NV COLLECTION VENOUS BLOOD VENIPUNCTURE Routine 10/23/2023 12:37 PM CDT Acquired hypothyroidism Screening for metabolic disorder Screening for lipid disorders documented in this encounter Results * Comprehensive Metobolic Panel (BFP) (10/23/2023 [...] NON-BE [facility] Performing Organization Address [facility]/ZIP Co de Phone Number BFP INTERNAL * (ABNORMAL) Lipid Panel (BFP) [...] CDT Madhavi Case PA-C LAB - NON-BE [facility] Performing Organization Address [facility]/ZIP Co de Phone Number BFP INTERNAL * (ABNORMAL) TSH WITH FREE T4 REFLEX ([facility]) (10/23/2023 1:38 PM CDT) TSH 4.93(H) 0.40 - 4.50 mIU/L [facility] T4 Free, Non-Dialysis 1.5 0.8 - 1.8 ng/dL [facility] Blood 10/23/2023 1:38 PM CDT 10/24/2023 8:37 AM CDT Narrative Resulting Agency Comment Performing Organization Information: ? CB ? [facility] ? [address] [place] [address] ? Felipe Nails Madhavi Case PA-C LAB - NON-BE [facility] Performing Organization Address City/[facility]/ZIP Co de Phone Number [facility] [address] [place] [address], [facility] [phone] documented in this encounter Visit Diagnoses Diagnosis Screening for metabolic disorder- Primary Herpes simplex virus infection - genital Herpes simplex without mention of complication Recurrent major depressive disorder, in full remission (H24) Acquired hypothyroidism Unspecified hypothyroidism Recurrent UTI Urinary tract infection, site not specified OAB (overactive bladder) Hypertonicity of bladder Screening for lipid disorders documented in this encounter Additional Health Concerns Assessment Noted Time PHQ-9 Depression Total Score: 0 10/23/19 24 1:04 PM CDT documented as of this encounter Care Teams Vice President Research Relationship Specialty Start Date End Date Madhavi Case PA-C [address], [place] [address] [place] [address] PCP - General Family Medicine 07/21/22 Madhavi Case PA-C [address], [place] [address] [place] [address] Assigned PCP 08/05/22 documented as of this encounter
--- OUTSIDE RECORDS SUMMARY | 2023-12-07 23:54 | XMS_ITS | Encounter Summary ---
Author Name Unknown Organization [facility] Address [address] [place] [address] Care Team Providers Care Senior Systems Architect Name Role Phone Madhavi Case PA-C Primary Care Provid er Madhavi Case PA-C Unavailable +[phone]- [phone] Encounter Details Date Type Department Care Team ([facility] st Contact Info) Description 08/25/2022 MyC Medical Advice [facility] [address] [place] [address] Madhavi Case PA-C [address] [place] [address] Social History Tobacco Use Types Packs/Day [...] suspected to have Coronavirus/COVID-19? No / Unsure 08/01/2022 12:17 PM MARBLE CUTTER OPERATOR documented as of this encounter Plan of Treatment Not on file documented as of this encounter Visit Diagnoses Not on filedocumented in this encounter Additional Health Concerns Assessment Noted Time PHQ-9 Depression Total Score: 0 01/25/20 1:16 PM CDT documented as of this encounter Care Teams Senior Systems Architect Relationship Specialty Start Date End Date Madhaiv Case PA-C [address], [place] [address] [place] [address] PCP - General Family Medicine 07/21/22 Madhavi Case PA-C [address], [address] [address] [place] [address] Assigned PCP 08/05/22 documented as of this encounter
--- OUTSIDE RECORDS SUMMARY | 2023-12-07 23:54 | XMS_ITS | Encounter Summary ---
Author Name Unknown Organization [facility] Address [address] [place] [address] Care Team Providers Care Lead Project Manager Name Role Phone Madhavi Case PA-C Primary Care Provid er Madhavi Case PA-C Unavailable +1- [phone] Encounter Details Date Type Department Care Team (Latest Contact Info) Description 10/23/2023 Travel Social History Tobacco Use Types Packs/Day Years [...] documented as of this encounter Care Teams Lead Project Manager Relationship Specialty Start Date End Date Madhavi Case PA-C [address], [facility] [address] [place] [address] PCP - General Family Medicine 07/21/22 Madhavi Case PA-C [address], [address] [address] Assigned PCP 08/05/22 documented as of this encounter
--- OUTSIDE RECORDS SUMMARY | 2023-12-07 23:55 | XMS_ITS | Encounter Summary ---
Author Name Unknown Organization [facility] Address [address] [place] [address] Care Team Providers Care Sealer Sander Name Role Phone Bianca Geronimo Primary Care Provi essence Bianca Geronimo Unavailable +[phone] Madhavi Case PA-C Primary Care Provid er Madhavi Case PA-C Unavailable + [phone] Encounter Details Date Type Department Care Team (Late st Contact Info) Description 05/16/2019 MyC Medical Advice [facility] [address] [place] [address] [address] [place] [address] Bianca Geronimo PA [address] [address] Social History Tobacco Use Types Packs/Day Years Used Date Smoking Tobacco: Every Day Cigarettes 0.2 40 Smokeless Tobacco: Never Comments:1 cig a day [...] when you are drinking? 1 or 2 Q3: How often do you have si x or more drinks on one occasion? Never 02/28/2019 Sex and Gender Information Value Date Recorded Sex Assigned at Not on file Gender Identity Not on file Sexual Orientation Not on file documented as of this encounter Plan of Treatment Not on file documented as of this encounter Visit Diagnoses Not on filedocumented in this encounter Additional Health Concerns Assessment Noted Time PHQ-9 Depression Total Score: 0 02/29/20 19 10:00 AM CDT documented as of this encounter Care Teams Sealer Sander Relationship Specialty Start Date End Date Bianca Geronimo PA PCP - General Family Practice 10/15/13 07/20/22 Madhavi Case PA-C [address] , [address] [address] PCP - General Family Medicine 07/21/22 Bianca Geronimo PA [address] [address] Assigned PCP 08/08/15 08/04/22 Madhavi Case PA-C [address] , [address] [address] Assigned PCP 08/05/22 documented as of this encounter
--- OUTSIDE RECORDS SUMMARY | 2023-12-07 23:55 | XMS_ITS | Encounter Summary ---
Author Name Unknown Organization [facility] Address [address] [place] [address] Care Team Providers Care Research Professional Name Role Phone Jaylon Pete MD Primary Care Provider + [phone] Bianca Geronimo Primary Care Provi essence Bianca Geronimo Unavailable +[phone] Madhavi Case PA-C Primary Care Provid er Madhavi Case PA-C Unavailable + [phone] Encounter Details Date Type Department Care Team (Late st Contact Info) Description 06/19/2011 MyC Medical Advice [facility] [address] [place] [address] [place] [address] [facility]iz Social History Tobacco Use Types Packs/Day Years Used Date Smoking Tobacco: Former Smokeless Tobacco: Never Alcohol Use Standard Drinks/Week Comments Yes 6.7 (1 standard drink = 0.6 oz p ure alcohol) Sex and Gender Information Value Date Recorded Sex Assigned at Not on file Gender Identity Not on file Sexual Orientation Not on file documented as of this encounter Plan of Treatment Not on file documented as of this encounter Visit Diagnoses Not on filedocumented in this encounter Care Teams Research Professional Relationship Specialty Start Date End Date Jaylon Pete MD XXX RETIRED XXX [address] [facility] [address] [place] [address] PCP - General 03/05/07 10/14/13 Bianca Geronimo PA XXX RETIRED XXX [address] [address] PCP - General Family Practice 10/15/13 07/20/22 Madhavi Case PA-C [address], [address] [address] PCP - General Family Medicine 07/21/22 Bianca Geronimo PA [address] [address] Assigned PCP 08/08/15 08/04/22 Madhavi Case PA-C [address] , [address] [address] Assigned PCP 08/05/22 documented as of this encounter
--- OUTSIDE RECORDS SUMMARY | 2023-12-07 23:55 | XMS_ITS | Encounter Summary ---
Author Name Unknown Organization [facility] Address [address] [place] [address] Care Team Providers Care Compression Molding Machine Tender Name Role Phone Jaylon Pete MD Primary Care Provider + [phone] Bianca Geronimo Primary Care Provi essence Bianca Geronimo Unavailable [phone] Madhavi Case PA-C Primary Care Provid er Madhavi Case PA-C Unavailable + [phone] Encounter Details Date Type Department Care Team (Late st Contact Info) Description 12/28/2012 MyC Medical Advice [facility] [address] [place] [address] [place] [address] Zion Resendiz Social History Tobacco Use [...] on filedocumented in this encounter Care Teams Compression Molding Machine Tender Relationship Specialty Start Date End Date Jaylon Pete MD XXX RETIRED XXX [address] [facility] [address] [place] [address] PCP - General 03/05/07 10/14/13 Bianca Geronimo PA XXX RETIRED XXX [address] [address] PCP - General Family Practice 10/15/13 07/20/22 Madhavi Case PA-C [address], [address] [address] PCP - General Family Medicine 07/21/22 Bianca Geronimo PA [address] [address] Assigned PCP 08/08/15 08/04/22 Madhavi Caes PA-C [address] , [address] [address] Assigned PCP 08/05/22 documented as of this encounter
--- OUTSIDE RECORDS SUMMARY | 2023-12-07 23:55 | XMS_ITS | Encounter Summary ---
Author Name Unknown Organization [facility] Address [address] [place] [address] Care Team Providers Care Club Steward Name Role Phone Bianca Geronimo Primary Care Provi essence Bianca Geronimo Unavailable +[phone] Madhavi Case PA-C Primary Care Provid er Madhavi Case PA-C Unavailable + [phone] Encounter Details Date Type Department Care Team (Late st Contact Info) Description 06/25/2014 MyC Medical Advice [facility] [address] [place] [address] Bianca Geronimo PA [address] [address] Social History Tobacco Use Types Packs/Day Years [...] on filedocumented in this encounter Care Teams Club Steward Relationship Specialty Start Date End Date Bianca Geronimo PA PCP - General Family Practice 10/15/13 07/20/22 Madhavi Case PA-C [address] , [address] [address] PCP - General Family Medicine 07/21/22 Bianca Geronimo PA [address] [address] Assigned PCP 08/08/15 08/04/22 Madhavi Case PA-C [address] , [address] [address] Assigned PCP 08/05/22 documented as of this encounter
--- OUTSIDE RECORDS SUMMARY | 2023-12-07 23:55 | XMS_ITS | Encounter Summary ---
Author Name Unknown Organization [facility] Address [address] [place] [address] Care Team Providers Care Party Plan Selling Distributor Name Role Phone Bianca Geronimo Primary Care Provi essence Bianca Geronimo Unavailable + [phone] Madhavi Case PA-C Primary Care Provid er Madhavi Case PA-C Unavailable +[phone]- [phone] Reason for Visit * Reason Onset Date Comments MyChart Communication 05/21/2018 Encounter Details Date Type Department Care Team (Latest Contact Info) Description 05/21/2018 MyC Medical Advice [facility] [address] [place] [address] [place] [address] Bianca Geronimo PA [address] [address] MyChart Communication Social History Tobacco Use Types Packs/Day Years Used Date Smoking Tobacco: Every Day Cigarettes 0.2 40 Smokeless Tobacco: Never Comments:1 cig a day or less Alcohol Use Standard Drinks/Week Comments Yes 21 (1 standard drink = 0.6 oz pu re alcohol) occasionally Sex and Gender Information Value Date Recorded Sex Assigned at Not on file Gender Identity Not on file Sexual Orientation Not on file documented as of this encounter Miscellaneous Notes * Telephone Encounter - Vickie Renner CMA - 05/21/2018 12:35 PM CDT Routing to Bianca for review. * Telephone Encounter - Vickie Renner CMA - 05/21/2018 12:35 PM CDTFrom: Sindy Zarate Sent: 05/21/2018 12:15 PM CDT To: [facility] Nurse Pool Subject: RE:follow up I talked with Dr. Cross's nurse on or Sunday last week. She said Dr. Cross was out until today, so she was going to talk with her and get back to me. This morning, however, [facility] called with a referral to Dr. Jesús Hinojosa, plastic surgeon at the . I have an appointment with him next Sunday. I'm going to follow up with Dr. Cross to see if she agrees with that plan. I appreciate your follow up and will keep you posted. Thanks! ----- Message ----- From: NOHEMI Valle Sent: 05/21/2018 11:50 AM CDT To: Sindy Zarate Subject: follow up Did you get in touch with Dr. Cross for next steps? Bianca Geronimo PA-C 05/21/2018 documented in this encounter Plan of Treatment Not on file documented as of this encounter Visit Diagnoses Not on filedocumented in this encounter Additional Health Concerns Assessment Noted Time PHQ-9 Depression Total Score: 1 11/01/19 18 7:46 AM CDT documented as of this encounter Care Teams Party Plan Selling Distributor Relationship Specialty Start Date End Date Bianca Geronimo PA PCP - General Family Practice 10/15/13 07/20/22 Madhavi Case PA-C [address], [place] [address] [place] [address] PCP - General Family Medicine 07/21/22 Bianca Geronimo PA [address] [address] Assigned PCP 08/08/15 08/04/22 Madhavi Case PA-C [address] [address] Assigned PCP 08/05/22 documented as of this encounter
--- OUTSIDE RECORDS SUMMARY | 2023-12-07 23:55 | XMS_ITS | Encounter Summary ---
Author Name Unknown Organization [place] Address [address] [place] [address] Care Team Providers Care Tapper Operator Name Role Phone Jaylon Pete MD Primary Care Provider + [phone] Bianca Geronimo Primary Care Provi essence Bianca Geronimo Unavailable +[phone] Madhavi Case PA-C Primary Care Provid er Madhavi Case PA-C Unavailable + [phone] Encounter Details Date Type Department Care Team (Late st Contact Info) Description 06/25/2013 MyC Medical Advice [facility] [address] [place] [address] [place] [address] [place] Resendiz Social History Tobacco Use [...] on filedocumented in this encounter Care Teams Tapper Operator Relationship Specialty Start Date End Date Jaylon Pete MD XXX RETIRED XXX [address] [facility] [place] [address] PCP - General 03/05/07 10/14/13 Bianca Geronimo PA XXX RETIRED XXX [address] [address] PCP - General Family Practice 10/15/13 07/20/22 Madhavi Case PA-C [address], [address] [address] PCP - General Family Medicine 07/21/22 Bianca Geronimo PA [address] [address] Assigned PCP 08/08/15 08/04/22 Madhavi Case PA-C [address] , [address] [address] Assigned PCP 08/05/22 documented as of this encounter
--- OUTSIDE RECORDS SUMMARY | 2023-12-07 23:55 | XMS_ITS | Encounter Summary ---
Author Name Unknown Organization [place] Address [address] [place] [address] Care Team Providers Care Cadmium Burner Name Role Phone Bianca Geronimo Primary Care Provi essence Bianca Geronimo Unavailable +[phone] Madhavi Case PA-C Primary Care Provid er Madhavi Case PA-C Unavailable + [phone] Encounter Details Date Type Department Care Team (Late st Contact Info) Description 06/05/2020 MyC Medical Advice [facility] [address] [place] [address] [address] [place] [address] Bianca Geronimo PA [address] [facility] [address] [address] Social History Tobacco Use Types [...] PHQ-2 Answer Date Recorded PHQ-2 Score 0 02/13/2020 Sex and Gender Information Value Date Recorded Sex Assigned at Not on file Gender Identity Not on file Sexual Orientation Not on file COVID-19 Exposure Response Date Recorded In the last month, have you been in contact with someone who was confirmed or suspected to have Coronavirus / COVID-19? No / Unsure 06/07/2020 4:37 PM GATE WATCH documented as of this encounter Plan of Treatment Not on file documented as of this encounter Visit Diagnoses Not on filedocumented in this encounter Additional Health Concerns Assessment Noted Time PHQ-9 Depression Total Score: 0 02/13/20 20 12:08 PM CDT documented as of this encounter Care Teams Cadmium Burner Relationship Specialty Start Date End Date Bianca Geronimo PA PCP - General Family Practice 10/15/13 07/20/22 Madhavi Case PA-C [address], [address] [address] PCP - General Family Medicine 07/21/22 Bianca Geronimo PA [address] [address] Assigned PCP 08/08/15 08/04/22 Madhavi Case PA-C [address], [facility] 100 [place] [address] Assigned PCP 08/05/22 documented as of this encounter
--- OUTSIDE RECORDS SUMMARY | 2023-12-07 23:55 | XMS_ITS | Encounter Summary ---
Author Name Unknown Organization [place] Address [address] [place] [address] Care Team Providers Care Turntable Engineer Name Role Phone Jaylon Pete MD Primary Care Provider + [phone] Bianca Geronimo Primary Care Provi essence Bianca Geronimo Unavailable +[phone] Madhavi Case PA-C Primary Care Provid er Madhavi Case PA-C Unavailable + [phone] Encounter Details Date Type Department Care Team (Late st Contact Info) Description 01/20/2011 MyC Medical Advice [facility] [address] [place] [address] [place] [address] Zion Resendiz Social History Tobacco Use [...] on filedocumented in this encounter Care Teams Turntable Engineer Relationship Specialty Start Date End Date Jaylon Pete MD XXX RETIRED XXX [address] [facility] 100 [place] [address] PCP - General 03/05/07 10/14/13 Bianca Geronimo PA XXX RETIRED XXX [address] [address] PCP - General Family Practice 10/15/13 07/20/22 Madhavi Case PA-C [address], [address] [address] PCP - General Family Medicine 07/21/22 Bianca Geronimo PA [address] [address] Assigned PCP 08/08/15 08/04/22 Madhavi Case PA-C [address] , [address] [address] Assigned PCP 08/05/22 documented as of this encounter
--- OUTSIDE RECORDS SUMMARY | 2023-12-07 23:55 | XMS_ITS | Encounter Summary ---
Author Name Unknown Organization [place] Address [address] [place] [address] Care Team Providers Care Proof Machine Operator Name Role Phone Jaylon Pete MD Primary Care Provider + [phone] Bianca Geronimo Primary Care Provi essence Bianca Geronimo Unavailable +[phone] Madhavi Case PA-C Primary Care Provid er Madhavi Case PA-C Unavailable + [phone] Reason for Visit * Reason Onset Date Comments Refill Request 11/04/2010 Encounter Details Date Type Department Care Team (Late st Contact Info) Description 11/04/2010 MyC Refill [facility] [address] [address] Zion Resendiz Refill Request Social History Tobacco Use Types Packs/Day Years Used Date Smoking Tobacco: Former Alcohol Use Standard Drinks/Week Comments Yes 6.7 [...] on filedocumented in this encounter Care Teams Proof Machine Operator Relationship Specialty Start Date End Date Jaylon Pete MD XXX RETIRED XXX [address] [address] PCP - General 03/05/07 10/14/13 Bianca Geronimo PA XXX RETIRED XXX [address] [address] PCP - General Family Practice 10/15/13 07/20/22 Madhavi Case PA-C [address], [address] [address] PCP - General Family Medicine 07/21/22 Bianca Geronimo PA [address] [address] Assigned PCP 08/08/15 08/04/22 Madhavi Case PA-C [address], [address] [address] Assigned PCP 08/05/22 documented as of this encounter
--- OUTSIDE RECORDS SUMMARY | 2023-12-07 23:55 | XMS_ITS | Encounter Summary ---
Author Name Unknown Organization [place] Address [address] [place] [address] Care Team Providers Care Portable Router Operator Name Role Phone Jaylon Pete MD Primary Care Provider + [phone] Bianca Geronimo Primary Care Provi essence Bianca Geronimo Unavailable +[phone] Madhavi Case PA-C Primary Care Provid er Madhavi Case PA-C Unavailable + [phone] Encounter Details Date Type Department Care Team (Late st Contact Info) Description 03/24/2009 [facility] [address] [place] [address] Zion Resendiz Social History Tobacco Use Types Packs/Day Years Used Date Smoking Tobacco: Never Alcohol Use Standard Drinks/Week Comments Yes 10 (1 standard drink = 0.6 oz pu re alcohol) Sex and Gender Information Value Date Recorded Sex Assigned at Not on file Gender Identity Not on file Sexual Orientation Not on file documented as of this encounter Plan of Treatment Not on file documented as of this encounter Visit Diagnoses Not on filedocumented in this encounter Care Teams Portable Router Operator Relationship Specialty Start Date End Date Jaylon Pete MD XXX RETIRED XXX [address] [address] PCP - General 03/05/07 10/14/13 Bianca Geronimo PA XXX RETIRED XXX [address] [address] PCP - General Family Practice 10/15/13 07/20/22 Madhavi Case PA-C [address] , [address] [address] PCP - General Family Medicine 07/21/22 Bianca Geronimo PA [address] [address] Assigned PCP 08/08/15 08/04/22 Madhavi Case PA-C [address] , [address] [address] Assigned PCP 08/05/22 documented as of this encounter
--- OUTSIDE RECORDS SUMMARY | 2023-12-07 23:55 | XMS_ITS | Encounter Summary ---
Author Name Unknown Organization [place] Address [address] [place] [address] Care Team Providers Care Agricultural Loan Officer Name Role Phone Bianca Geronimo Primary Care Provi essence Bianca Geronimo Unavailable + -[phone] Madhavi Case PA-C Primary Care Provid er Madhavi Case PA-C Unavailable +- [phone] Encounter Details Date Type Department Care Team (Late st Contact Info) Description 05/17/2018 MyC Medical Advice [facility] [address] [place] [address] Bianca Geronimo PA [address] [address] Social History Tobacco Use Types [...] encounter Miscellaneous Notes * Telephone Encounter - Siobhan Martin CMA - 05/17/2018 12:40 PM CDTFrom: Sindy Zarate To: Bianca Geronimo PA Sent: 05/17/2018 12:33 PM CDT Subject: Updates about my health Hi Bianca: Thanks so much for calling me. I reached out to [facility] Cross as you suggested. I spoke with her nurse (Aviva) and gave her all thescoop. She has all my records and from [facility] and is going to have Cherie call me when she is back in the office on Sunday. Thanks! documented in this encounter Plan of Treatment Not on file documented as of this encounter Visit Diagnoses Not on filedocumented in this encounter Additional Health Concerns Assessment Noted Time PHQ-9 Depression Total Score: 1 11/01/19 18 7:46 AM CDT documented as of this encounter Care Teams Agricultural Loan Officer Relationship Specialty Start Date End Date Bianca Geronimo PA PCP - General Family Practice 10/15/13 07/20/22 Madhavi Case PA-C [address] , [address] [address] PCP - General Family Medicine 07/21/22 Bianca Geronimo PA [address] [address] Assigned PCP 08/08/15 08/04/22 Madhavi Case PA-C [address], [facility] 100 [place] [address] Assigned PCP 08/05/22 documented as of this encounter
--- OUTSIDE RECORDS SUMMARY | 2023-12-07 23:55 | XMS_ITS | Encounter Summary ---
Author Name Unknown Organization [place] Address [address] [place] [address] Care Team Providers Care Car Lot Attendant Name Role Phone Jaylon Pete MD Primary Care Provider + [phone] Bianca Geronimo Primary Care Provi essence Bianca Geronimo Unavailable +[phone] Madhavi Case PA-C Primary Care Provid er Madhavi Case PA-C Unavailable + [phone] Encounter Details Date Type Department Care Team (Late st Contact Info) Description 03/24/2009 MyC Medical Advice [facility] [address] [place] [address] [place] [address] Zion Resendiz Social History Tobacco Use [...] on filedocumented in this encounter Care Teams Car Lot Attendant Relationship Specialty Start Date End Date Jaylon Pete MD XXX RETIRED XXX [address] [facility] 100 [place] [address] PCP - General 03/05/07 10/14/13 Bianca Geronimo PA XXX RETIRED XXX [address] [address] PCP - General Family Practice 10/15/13 07/20/22 Madhavi Case PA-C [address] , [address] [address] PCP - General Family Medicine 07/21/22 Bianca Geronimo PA [address] [address] Assigned PCP 08/08/15 08/04/22 Madhavi Case PA-C [address] , [address] [address] Assigned PCP 08/05/22 documented as of this encounter
--- OUTSIDE RECORDS SUMMARY | 2023-12-07 23:55 | XMS_ITS | Encounter Summary ---
Author Name Unknown Organization [place] Address [address] [place] [address] Care Team Providers Care Psychologist Chief Name Role Phone Jaylon Pete MD Primary Care Provider + [phone] Bianca Geronimo Primary Care Provi essence Bianca Geronimo Unavailable +[phone] Madhavi Case PA-C Primary Care Provid er Madhavi Case PA-C Unavailable + [phone] Encounter Details Date Type Department Care Team (Late st Contact Info) Description 12/25/2012 MyC Medical Advice [facility] [address] [place] [address] [place] [address] Zion Resendiz Social History Tobacco Use [...] on filedocumented in this encounter Care Teams Psychologist Chief Relationship Specialty Start Date End Date Jaylon Pete MD XXX RETIRED XXX [address] [facility] 100 [place] [address] PCP - General 03/05/07 10/14/13 Bianca Geronimo PA XXX RETIRED XXX [address] [address] PCP - General Family Practice 10/15/13 07/20/22 Madhavi Case PA-C [address], [address] [address] PCP - General Family Medicine 07/21/22 Bianca Geronimo PA [address] [address] Assigned PCP 08/08/15 08/04/22 Madhavi Case PA-C [address] , [address] [address] Assigned PCP 08/05/22 documented as of this encounter
--- OUTSIDE RECORDS SUMMARY | 2023-12-07 23:55 | XMS_ITS | Encounter Summary ---
Author Name Unknown Organization [facility] Address [address] [place] [address] Care Team Providers Care Boss Dyer Name Role Phone Bianca Geronimo Primary Care Provi essence Bianca Geronimo Unavailable +[phone] Madhavi Case PA-C Primary Care Provid er Madhavi Case PA-C Unavailable +- [phone] Encounter Details Date Type Department Care Team (Late st Contact Info) Description 11/25/2020 MyC Medical Advice [facility] [address] [place] [address] Bianca Geronimo PA [address] [facility] [address] [address] Social History Tobacco Use Types [...] have Coronavirus / COVID-19? No / Unsure 11/23/2020 11:29 AM CDT documented as of this encounter Plan of Treatment Not on file documented as of this encounter Visit Diagnoses Not on filedocumented in this encounter Additional Health Concerns Assessment Noted Time PHQ-9 Depression Total Score: 0 11/24/19 12:34 PM CDT documented as of this encounter Care Teams Boss Dyer Relationship Specialty Start Date End Date Bianca Geronimo PA PCP - General Family Practice 10/15/13 07/20/22 Madhavi Case PA-C [address], [facility] 100 [place] [address] PCP - General Family Medicine 07/21/22 Bianca Geronimo PA [address] [address] Assigned PCP 08/08/15 08/04/22 Madhavi Case PA-C [address], [facility] 100 [place] [address] Assigned PCP 08/05/22 documented as of this encounter
--- OUTSIDE RECORDS SUMMARY | 2023-12-07 23:55 | XMS_ITS | Encounter Summary ---
Author Name Unknown Organization [facility] Address [address] [place] [address] Care Team Providers Care Ssas Developer Name Role Phone Bianca Geronimo Primary Care Provi essence Bianca Geronimo Unavailable + -[phone] Madhavi Case PA-C Primary Care Provid er Madhavi Case PA-C Unavailable +- [phone] Encounter Details Date Type Department Care Team (Late st Contact Info) Description 10/10/2016 MyC Medical Advice [facility] [address] [place] [address] Bianca Geronimo PA [address] [address] Social History Tobacco Use Types Packs/Day Years Used Date Smoking Tobacco: Smoker, Current Status Unknown Cigarettes 0.2 40 Smokeless Tobacco: Never Comments:1 cig a day Alcohol Use Standard Drinks/Week Comments Yes 21 (1 standard drink = 0.6 oz pu re alcohol) occasionally Sex and Gender Information Value Date Recorded Sex Assigned at Not on file Gender Identity Not on file Sexual Orientation Not on file documented as of this encounter Miscellaneous Notes * Telephone Encounter - Siobhan Martin CMA - 10/10/2016 4:44 PM CSTFrom: Sindy Zarate To: Bianca Geronimo PA Sent: 10/10/2016 3:33 PM CLAY MODELER Subject: Attn: Bianca Valenzuela: Thanks for responding. I'm happy to take acyclovir if it will work for warts. I don't have a herpes outbreak right now. Same drug will work? Thanks I sent in a prescription for acyclovir which It looks like you have used in the past for genital herpes. Please take this. Thanks, Bianca Geronimo PA-C ----- Message ----- From: Sindy Zarate Sent: 10/09/2016 1:48 PM CLAY MODELER To: NOHEMI Valle Subject: Attn: Bianca Valenzuela: I would like to treat a genital wart cluster that I have (5 or 6). Please let me know if you have an OTC recommendation, if there is a prescription that would work better, or if it would be best to do an office visit to burn them. Thanks, Sindy Zarate MODELER documented in this encounter Plan of Treatment Not on file documented as of this encounter Visit Diagnoses Not on filedocumented in this encounter Additional Health Concerns Assessment Noted Time PHQ-9 Depression Total Score: 2 07/29/20 16 7:12 AM CLAY MODELER documented as of this encounter Care Teams Ssas Developer Relationship Specialty Start Date End Date Bianca Geronimo PA PCP - General Family Practice 10/15/13 07/20/22 Madhavi Case PA-C [address], [address] [place] [address] PCP - General Family Medicine 07/21/22 Bianca Geronimo PA [address] [place] [address] Assigned PCP 08/08/15 08/04/22 Madhavi Case PA-C [address] [facility] 100 [place] [address] Assigned PCP 08/05/22 documented as of this encounter
--- OUTSIDE RECORDS SUMMARY | 2023-12-07 23:55 | XMS_ITS | Encounter Summary ---
Author Name Unknown Organization [place] Address [address] [place] [address] Care Team Providers Care Construction Equipment Mechanic Helper Name Role Phone Bianca Geronimo Primary Care Provi essence Bianca Geronimo Unavailable +[phone] Madhavi Case PA-C Primary Care Provid er Madhavi Case PA-C Unavailable + [phone] Encounter Details Date Type Department Care Team (Late st Contact Info) Description 07/28/2016 MyC Medical Advice [facility] [address] [place] [address] Bianca Geronimo PA [address] [address] Social History Tobacco Use Types [...] Total Score: 2 07/29/20 16 7:12 AM SILVERWARE CLEANER documented as of this encounter Care Teams Construction Equipment Mechanic Helper Relationship Specialty Start Date End Date Bianca Geronimo PA PCP - General Family Practice 10/15/13 07/20/22 Madhavi Case PA-C [address], [address] [address] PCP - General Family Medicine 07/21/22 Bianca Geronimo PA [address] [address] Assigned PCP 08/08/15 08/04/22 Madhavi Case PA-C [address], [address] [address] Assigned PCP 08/05/22 documented as of this encounter
--- OUTSIDE RECORDS SUMMARY | 2023-12-07 23:55 | XMS_ITS | Encounter Summary ---
Author Name Unknown Organization [facility] [facility] Address [address] [place] [address] Care Team Providers Care Bicycle Repairman Name Role Phone Bianca Geronimo Primary Care Provi essence Bianca Geronimo Unavailable + -[phone] Madhavi Case PA-C Primary Care Provid er Madhavi Case PA-C Unavailable +- [phone] Encounter Details Date Type Department Care Team (Late st Contact Info) Description 05/17/2018 MyC Medical Advice [facility] [address] [place] [address] Bianca Geronimo PA [address] [address] Social History Tobacco Use Types [...] Encounter - Siobhan Martin CMA - 05/17/2018 11:13 AM CDTFrom: Sindy Zarate To: Bianca Geronimo PA Sent: 05/17/2018 10:27 AM CDT Subject: Updates about my health Hi Bianca: You aren't going to believe this. 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 The laser burn was so extensive that after healing the scar tissue around the vaginal opening has lost all elasticity and I'm left unable to have intercourse. I went to three follow up appointments with them and they recommended trying an estrogen cream along with expanders to soften the scar tissue and widen the opening. I did exactly what they told me to do and it didn't work. I had an appointment on May 13 to figure out next steps. I met with Dr. Levine's (nurse maybe? Kylee is her name); she agreed that I need a procedure to fix the problem and promised to get back to me with a referral (plastic surgeon or ?). I helped her understand I needed this taken care of LEID[place] (romantic trip planned). Their office has not gotten back to me and not responding to my messages. I'm so upset I can hardly see. Any advice you have would be greatly appreciated. (Thinking about getting an commonwealth attorney) documented in this encounter Plan of Treatment Not on file documented as of this encounter Visit Diagnoses Not on filedocumented in this encounter Additional Health Concerns Assessment Noted Time PHQ-9 Depression Total Score: 1 11/01/19 18 7:46 AM CDT documented as of this encounter Care Teams Bicycle Repairman Relationship Specialty Start Date End Date Bianca Geronimo PA PCP - General Family Practice 10/15/13 07/20/22 Madhavi Case PA-C [address], [address] [place] [address] PCP - General Family Medicine 07/21/22 Bianca Geronimo PA [address] [place] [address] Assigned PCP 08/08/15 08/04/22 Madhavi Case PA-C [address], [facility] 100 [place] [address] Assigned PCP 08/05/22 documented as of this encounter
--- OUTSIDE RECORDS SUMMARY | 2023-12-07 23:55 | XMS_ITS | Encounter Summary ---
Author Name Unknown Organization [place] Address [address] [place] [address] Care Team Providers Care Clinical Registered Nurse Name Role Phone Jaylon Pete MD Primary Care Provider + [phone] Bianac Geronimo Primary Care Provi essence Bianca Geronimo Unavailable +[phone] Madhavi Case PA-C Primary Care Provid er Madhavi Case PA-C Unavailable + [phone] Encounter Details Date Type Department Care Team (Late st Contact Info) Description 12/02/2010 MyC Medical Advice [facility] [address] [place] [address] [address] [place] [address] Zion Resendiz Social History Tobacco Use [...] on filedocumented in this encounter Care Teams Clinical Registered Nurse Relationship Specialty Start Date End Date Jaylon Pete MD XXX RETIRED XXX [address] [facility] 100 [place] [address] PCP - General 03/05/07 10/14/13 Bainca Geronimo PA XXX RETIRED XXX [address] [address] PCP - General Family Practice 10/15/13 07/20/22 Madhavi Case PA-C [address], [address] [address] PCP - General Family Medicine 07/21/22 Bianca Geronimo PA [address] [address] Assigned PCP 08/08/15 08/04/22 Madhavi Case PA-C [address], [address] [address] Assigned PCP 08/05/22 documented as of this encounter
--- OUTSIDE RECORDS SUMMARY | 2023-12-07 23:55 | XMS_ITS | Encounter Summary ---
Author Name Unknown Organization [facility] Address [address] [place] [id number] Care Team Providers Care Crime Specialist Name Role Phone Bianca Geronimo Primary Care Provi essence Bianca Geronimo Unavailable [phone] Madhavi Case PA-C Primary Care Provid er Madhavi Case PA-C Unavailable [phone] Reason for Visit * Reason Comments Medication Refill Encounter Details Date Type Department Care Team (Late st Contact Info) Description 06/03/2014 Refill [facility] [address] [place] [address] Natalie Morales MD NO INFO AVAILABLE 03/01/23 Medication Refill Social History Tobacco Use Types [...] encounter Miscellaneous Notes * Telephone Encounter - Gabi Zarate Chadwick - 06/03/2014 5:48 PM CDT Pending Prescriptions: Disp Refills citalopram (CELEXA) 10 MG tablet [Pharmac*45 tab*0 Sig: TAKE 1 1/2 TABLETS BY MOUTH EVERY DAY Please okay for 30 days, pt is due for an office visit. No appt scheduled at this time. Gabi [phone] (home) documented in this encounter Plan of Treatment Not on file documented as of this encounter Visit Diagnoses Diagnosis Major depressive disorder, single episode, in partial or unspecified remission- Primary documented in this encounter Care Teams Crime Specialist Relationship Specialty Start Date End Date Bianca Geronimo PA PCP - General Family Practice 10/15/13 07/20/22 Madhavi Case PA-C [address], [address] [address] PCP - General Family Medicine 07/21/22 Bianca Geronimo PA [id number] [facility] [id number] [address] Assigned PCP 08/08/15 08/04/22 Madhavi Case PA-C [address], [address] [address] Assigned PCP 08/05/22 documented as of this encounter
== END 2023-12-08 00:04 | disposition home or self-care (01) ==
LOC: ED 23:52
PROVIDERS: Emergency Provider Family Medicine
DX: S52.501A Unspecified fracture of the lower end of right radius, initial encounter for closed fracture (principal); W18.39XA Other fall on same level, initial encounter; Y93.K1 Activity, walking an animal
CPT/HCPCS: 29125; 73110; 99283; 99284

== ENCOUNTER 2024-04-17 15:00 | Outpatient (RCR) | payer MEDICARE, SELFPAY | END 2024-06-26 09:49 | disposition home or self-care (01) | PROVIDERS: Visit Provider Student in an Organized Health Care Education/Training Program | DX: S93.491A Sprain of other ligament of right ankle, initial encounter (principal); M25.571 Pain in right ankle and joints of right foot; Z51.89 Encounter for other specified aftercare | CPT/HCPCS: 97110; 97140; 97161 ==